=== PATIENT | female | born 1950 | race African-American/Black ===

== ENCOUNTER 2018-05-23 08:34 | Day surgery (SDC) | payer MEDICARE, OTHER ==
[2018-05-23] MEDS ORDERED: PROPOFOL 40 ML (10:57)
== END 2018-05-23 15:39 | disposition home or self-care (01) ==
LOC: GIL 08:34
DX: R19.4 Change in bowel habit (principal); K21.0 Gastro-esophageal reflux disease with esophagitis; K29.60 Other gastritis without bleeding; K44.9 Diaphragmatic hernia without obstruction or gangrene; D12.5 Benign neoplasm of sigmoid colon; K64.8 Other hemorrhoids; I10 Essential (primary) hypertension; E66.9 Obesity, unspecified; Z68.35 Body mass index [BMI] 35.0-35.9, adult
CPT/HCPCS: 43239; 88305; 88312